=== PATIENT | male | born 1995 | race African-American/Black ===

== ENCOUNTER 2018-11-25 14:46 | Emergency (ER) | payer BC ==
--- NOTE | 2018-11-25 14:48 | EDM.PDOC ---
ED HPI GENERAL MEDICAL PROBLEM - General Stated Complaint: LEG CHECKED OUT Time Seen by Provider: 11/25/18 14:47 Source of Information: Reports: Patient History Limitations: Reports: No Limitations - History of Present Illness INITIAL COMMENTS - FREE TEXT/NARRATIVE: HISTORY AND PHYSICAL: History of present illness: Patient is a 23-year-old male who presents to the emergency room with complaints of left posterior knee pain. He states when he palpates he can feel pain and a "lump" to the left popliteal area. He denies any injury, trauma or falls. States the pain has been gradual over the past 48 hours. Reports he did have a similar episode like this approximately a year ago which he was evaluated through another clinic and was diagnosed with arthritis. He denies any fever, chills, chest pain, shortness of breath or cough. Denies any abdominal pain, nausea, vomiting, diarrhea, constipation or dysuria. He has been eating and drinking appropriately. Denies any recent travel, skin rashes or lesions. Review of systems: As per history of present illness and below otherwise all systems reviewed and negative. Past medical history: As per history of present illness and as reviewed below otherwise noncontributory. Surgical history: As per history of present illness and as reviewed below otherwise noncontributory. Social history: See social history for further information Family history: As per history of present illness and as reviewed below otherwise noncontributory. Physical exam: General: Well-developed and well-nourished 23-year-old -[place] male. Alert and oriented. Nontoxic appearing and in no acute distress. HEENT: Atraumatic, normocephalic, pupils equal and reactive bilaterally, negative for conjunctival pallor or scleral icterus, mucous membranes moist, TMs normal bilaterally, throat clear, neck supple, nontender, trachea midline. No drooling or trismus noted. No meningeal signs. No hot potato voice noted. Lungs: Clear to auscultation, breath sounds equal bilaterally, chest nontender. Heart: S1S2, regular rate and rhythm without overt murmur Abdomen: Soft, nondistended, nontender. Negative for masses or hepatosplenomegaly. Negative for costovertebral tenderness. Pelvis: Stable nontender. Genitourinary: Deferred. Rectal: Deferred. Skin: Intact, warm, dry. No lesions or rashes noted. Extremities: Pain with palpation to the left posterior knee/popliteal area. Calf size is equal bilaterally. No evidence of erythema or soft tissue swelling. He is negative for cords or calf pain. Strong pedal pulses bilaterally. Neurovascular unremarkable. Neuro: Awake, alert, oriented. Cranial nerves II through XII unremarkable. Cerebellum unremarkable. Motor and sensory unremarkable throughout. Exam nonfocal. Notes: Him unable to appreciate the "lump" that he states he can palpate when pushing in the popliteal area of the left posterior knee. He states that there is moderate pain extending right into the calf with palpation. He denies any recent injury, trauma or falls. I will obtain an x-ray and ultrasound at this time. Patient is agreeable to plan of care. X-ray shows no acute findings. Ultrasound shows no evidence of a deep venous thrombosis in the left lower extremity. Crutches were offered. Encouraged him to follow up with the orthopedic provider for further evaluation and management if he continues to have pain. Supportive care measures were reviewed and discussed. Voices understanding and is agreeable to plan of care. Denies any further questions or concerns at this time. Diagnostics: Venous ultrasound, x-ray left knee Therapeutics: None Prescription: Diclofenac (#20) Impression: Left knee pain Plan: 1. Rest, ice, elevate the affected extremity as able. 2. Tylenol and/or ibuprofen as needed for pain management. 3. Please follow-up with the orthopedic provider as we discussed. 4. Return to the ED as needed and as discussed. Definitive disposition and diagnosis as appropriate pending reevaluation and review of above. Left Leg Pain Score (Numeric/FACES): 3 - Related Data Allergies Allergy/AdvReac Type Severity Reaction Status Date / Time No Known Allergies Allergy Verified 11/25/18 14:59 Home Meds: Home Meds . [No Known Home Meds] 11/25/18 [History] Review of Systems - Review of Systems Review Of Systems: ROS reveals no pertinent complaints other than HPI. ED EXAM, GENERAL - Physical Exam Exam: See Below (See dictation) Course - Vital Signs Last Recorded V/S: Last Vital Signs Temp 97.3 F 11/25/18 15:00 Pulse 76 11/25/18 15:00 Resp 16 11/25/18 15:00 BP 159/89 H 11/25/18 15:00 Pulse Ox 100 11/25/18 15:00 - Orders/Labs/Meds Orders: Active Orders 24 hr Category Date Time Status Knee 3V Lt [CR] Stat Exams 11/25/18 15:16 Taken Departure - Departure Time of Disposition: 16:47 Disposition: Home, Self-Care 01 Clinical Impression: Posterior left knee pain - Discharge Information Instructions: Knee Pain, Adult Referrals: PCP,None [Primary Care Provider] - Forms: ED Department Discharge Additional Instructions: The following information is given to patients seen in the emergency department who are being discharged to home. This information is to outline your options for follow-up care. We provide all patients seen in our emergency department with a follow-up referral. The need for follow-up, as well as the timing and circumstances, are variable depending upon the specifics of your emergency department visit. If you don't have a primary care physician on staff, we will provide you with a referral. We always advise you to contact your personal physician following an emergency department visit to inform them of the circumstance of the visit and for follow-up with them and/or the need for any referrals to a consulting specialist. The emergency department will also refer you to a specialist when appropriate. This referral assures that you have the opportunity for follow-up care with a specialist. All of these measure are taken in an effort to provide you with optimal care, which includes your follow-up. Under all circumstances we always encourage you to contact your private physician who remains a resource for coordinating your care. When calling for follow-up care, please make the office aware that this follow-up is from your recent emergency room visit. If for any reason you are refused follow-up, please contact the [facility] Emergency Department at and asked to speak to the emergency department charge nurse. [facility] [address] [place] [address] [id number] [address] [address] 1. Rest, ice, elevate the affected extremity as able. 2. Tylenol and/or ibuprofen as needed for pain management. 3. Please follow-up with the orthopedic provider as we discussed. 4. Return to the ED as needed and as discussed. - My Orders Last 24 Hours: My Active Orders 11/25/18 15:16 Knee 3V Lt [CR] Stat - Assessment/Plan Last 24 Hours: My Active Orders 11/25/18 15:16 Knee 3V Lt [CR] Stat
--- NOTE | 2018-11-25 16:39 | US ---
INDICATION: Posterior knee pain TECHNIQUE: Ultrasound venous duplex lower left extremity. Compression venous exam was performed using ames-scale, color Doppler, and spectral Doppler analysis. COMPARISON: None available FINDINGS: Sonographic imaging demonstrates the left common femoral, deep femoral, superficial femoral, popliteal, posterior tibial and greater saphenous and the contralateral right common femoral veins to be fully compressible with normal color Doppler blood flow. IMPRESSION: No evidence of a deep venous thrombosis in the left lower extremity. Dictated by Prem Hayden MD @ 11/25/2018 4:38:19 PM Dictated by: Prem Hayden MD @ 11/25/2018 16:38:28 (Electronically Signed)
--- NOTE | 2018-11-28 10:56 | CR ---
EXAM DATE: 11/25/18 PATIENT'S AGE: 23 Patient: JESSICA ADDISON Facility: [facility] Site . Site : 1995 Study: XRay-Knee Left [id number]/8/2019 3:59:32 PM Ordering Physician: Doctor Gandhi Final Report: INDICATION: Posterior left knee pain. COMPARISON: none TECHNIQUE: Three-view left knee FINDINGS: The bones are anatomically aligned. There is no evidence of fracture, erosion or intrinsic bone lesion. The soft tissues appear normal. IMPRESSION: Negative left knee. Dictated by Derek Gaspar MD @ Nov 25 2018 4:32PM Signed by: Derek Gaspar MD @11/25/2018 4:33:20 PM (Electronic Signature) Report Signed by Proxy. ELI
== END 2018-11-25 16:52 | disposition home or self-care (01) ==
LOC: MW.ED 14:46
DX: M25.562 Pain in left knee (principal)
CPT/HCPCS: 73562-26-LT; 73562-LT; 93971-26-LT; 93971-LT; 99283; 99284-25

== ENCOUNTER 2019-02-22 07:16 | Emergency (ER) | payer BC ==
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
== END 2019-02-22 07:43 | disposition home or self-care (01) ==
LOC: MW.ED 07:16
DX: S40.011A Contusion of right shoulder, initial encounter (principal); X58.XXXA Exposure to other specified factors, initial encounter; F17.210 Nicotine dependence, cigarettes, uncomplicated
CPT/HCPCS: 99283

== ENCOUNTER 2024-01-03 11:44 | Emergency (ER) | payer BC ==
[2024-01-03] MEDS: Ketorolac 30 MG/ML SDV IM ONE (12:33)
[2024-01-03] MEDS: Lidocaine 4% 1 each Patch TOP PRN (12:34)
[2024-01-03] MEDS: Orphenadrine 60 MG/2 ML Inj IM ONE (12:34)
== END 2024-01-03 13:17 | disposition home or self-care (01) ==
LOC: MW.ED 11:44
DX: J40 Bronchitis, not specified as acute or chronic (principal); M54.9 Dorsalgia, unspecified; Z75.8 Other problems related to medical facilities and other health care
CPT/HCPCS: 96372; 99283; A9270; J1885; J2360